=== PATIENT | male | born 1980 | race African-American/Black ===

== ENCOUNTER 2017-06-20 09:11 | Emergency (ER) | payer MEDICAID, OTHER ==
[~2017-06-20] VITALS: Ht 157.5 cm; Wt 86.4 kg
[~2017-06-20 09:11] MED LIST: ALBU17AE27 IH; ARIP10TA8 PO
[2017-06-20 09:19] VITALS: BP 118/56
[2017-06-20] MEDS ORDERED: IBUPROFEN 800 MG TABLET PO ONE (10:15)
== END 2017-06-20 10:53 | disposition home or self-care (01) ==
LOC: EMS 09:15
DX: S93.401A Sprain of unspecified ligament of right ankle, initial encounter (principal); J45.909 Unspecified asthma, uncomplicated; Z87.891 Personal history of nicotine dependence; Z91.010 Allergy to peanuts; Z91.018 Allergy to other foods; X50.9XXA Other and unspecified overexertion or strenuous movements or postures, initial encounter; Y93.39 Activity, other involving climbing, rappelling and jumping off; Y92.69 Other specified industrial and construction area as the place of occurrence of the external cause; Y99.0 Civilian activity done for income or pay
CPT/HCPCS: 99284

== ENCOUNTER 2017-06-25 09:31 | Emergency (ER) | payer OTHER ==
[~2017-06-25] VITALS: Ht 165.1 cm; Wt 86.4 kg
[2017-06-25 09:38] VITALS: BP 132/74
[2017-06-25] MEDS ORDERED: HYDROCODONE/ACETAMINOPHEN 5-325 MG TABLET PO ONE (10:45)
== END 2017-06-25 11:22 | disposition home or self-care (01) ==
LOC: EMS 09:33
DX: S62.304A Unspecified fracture of fourth metacarpal bone, right hand, initial encounter for closed fracture (principal); J45.909 Unspecified asthma, uncomplicated; F17.210 Nicotine dependence, cigarettes, uncomplicated; Z88.6 Allergy status to analgesic agent; Z91.010 Allergy to peanuts; Z91.018 Allergy to other foods; W22.8XXA Striking against or struck by other objects, initial encounter; Y93.89 Activity, other specified; Y92.89 Other specified places as the place of occurrence of the external cause; Y99.8 Other external cause status
CPT/HCPCS: 99284

== ENCOUNTER 2019-05-21 06:20 | Emergency (ER) | payer SELFPAY ==
[~2019-05-21] VITALS: Ht 165.1 cm; Wt 185.0 kg
[~2019-05-21 06:20] MED LIST changes: -ARIP10TA8 PO
[2019-05-21] MEDS ORDERED: IPRATROPIUM BROMIDE 0.5 MG/2.5 ML NEB SOLUTION NEB ONE (06:30)
[2019-05-21] MEDS ORDERED: ALBUTEROL SULFATE 2.5 MG/0.5 ML NEB SOLUTION NEB ONE (06:30)
[2019-05-21] MEDS ORDERED: 0.9% SODIUM CHLORIDE 5 ML NEB SOLUTION NEB ONE (06:35)
[2019-05-21 07:56] VITALS: BP 132/76
[2019-05-21] MEDS ORDERED: PredniSONE 20 MG TABLET PO ONE (08:15)
== END 2019-05-21 08:34 | disposition home or self-care (01) ==
LOC: EMS 06:20
DX: J45.901 Unspecified asthma with (acute) exacerbation (principal); F17.210 Nicotine dependence, cigarettes, uncomplicated; Z88.6 Allergy status to analgesic agent; Z91.010 Allergy to peanuts; Z88.8 Allergy status to other drugs, medicaments and biological substances
CPT/HCPCS: 71046; 94640; 99283; 99406; J7512

== ENCOUNTER 2019-11-06 17:47 | Emergency (ER) | payer SELFPAY ==
[~2019-11-06] VITALS: Ht 165.1 cm; Wt 83.2 kg
[2019-11-06] MEDS ORDERED: ACETAMINOPHEN/CODEINE 300-30 MG TABLET PO ONE (19:00)
[2019-11-06 19:35] VITALS: BP 125/76
== END 2019-11-06 19:59 | disposition home or self-care (01) ==
LOC: EMS 17:47
DX: M26.69 Other specified disorders of temporomandibular joint (principal); J45.909 Unspecified asthma, uncomplicated; F17.210 Nicotine dependence, cigarettes, uncomplicated; Z88.6 Allergy status to analgesic agent; Z88.8 Allergy status to other drugs, medicaments and biological substances; Z91.010 Allergy to peanuts
CPT/HCPCS: 70450

== ENCOUNTER 2022-06-13 22:16 | Emergency (ER) | payer MEDICAID, OTHER ==
[~2022-06-13] VITALS: Ht 152.4 cm; Wt 76.8 kg
[2022-06-13] MEDS ORDERED: TRAM50TA2 PO (23:55)
[2022-06-14 00:09] VITALS: BP 115/67
== END 2022-06-14 00:30 | disposition home or self-care (01) ==
LOC: EMS 22:21
DX: S62.501A Fracture of unspecified phalanx of right thumb, initial encounter for closed fracture (principal); J45.909 Unspecified asthma, uncomplicated; F17.210 Nicotine dependence, cigarettes, uncomplicated; Z87.898 Personal history of other specified conditions; Z98.890 Other specified postprocedural states; Z91.010 Allergy to peanuts; Z88.8 Allergy status to other drugs, medicaments and biological substances; Z91.018 Allergy to other foods; X58.XXXA Exposure to other specified factors, initial encounter; Y93.89 Activity, other specified; Y92.89 Other specified places as the place of occurrence of the external cause; Y99.0 Civilian activity done for income or pay
CPT/HCPCS: 99283

== ENCOUNTER 2022-12-01 22:47 | Emergency (ER) | payer OTHER ==
[~2022-12-01] VITALS: Ht 165.1 cm; Wt 77.3 kg
[~2022-12-01 22:47] MED LIST changes: +TRAM50TA2 PO
[2022-12-01 23:08] VITALS: BP 125/78
[2022-12-02] MEDS ORDERED: TraMADol HCL 50 MG TABLET PO ONE (00:45)
== END 2022-12-02 02:41 | disposition home or self-care (01) ==
LOC: EMS 23:03
DX: M25.512 Pain in left shoulder (principal); R07.89 Other chest pain; M54.50 Low back pain, unspecified; J45.909 Unspecified asthma, uncomplicated; G89.29 Other chronic pain; F17.210 Nicotine dependence, cigarettes, uncomplicated; Z88.6 Allergy status to analgesic agent; Z88.8 Allergy status to other drugs, medicaments and biological substances; Z91.010 Allergy to peanuts; V99.XXXA Unspecified transport accident, initial encounter; Y93.89 Activity, other specified; Y92.89 Other specified places as the place of occurrence of the external cause; Y99.8 Other external cause status
CPT/HCPCS: 71101; 72100; 99284; 73030-TC; Z7502; Z7610

== ENCOUNTER 2023-06-03 20:16 | Emergency (ER) | payer OTHER ==
[~2023-06-03] VITALS: Ht 165.1 cm; Wt 77.3 kg
[2023-06-03] MEDS ORDERED: ACETAMINOPHEN/CODEINE 300-30 MG TABLET PO ONE (21:00)
[2023-06-03] MEDS ORDERED: CLINDAMYCIN HCL 150 MG CAPSULE PO ONE (21:00)
[2023-06-03] MEDS ORDERED: TRAM-559 PO (21:15)
[2023-06-03] MEDS ORDERED: CLIN-142 PO (21:15)
[2023-06-03 22:00] VITALS: BP 124/66; PULSE 67; RESP 16; TEMP 97.3
== END 2023-06-03 22:00 | disposition home or self-care (01) ==
LOC: EMS 20:17
DX: K02.9 Dental caries, unspecified (principal); F17.210 Nicotine dependence, cigarettes, uncomplicated; J45.909 Unspecified asthma, uncomplicated; G89.29 Other chronic pain; M54.9 Dorsalgia, unspecified; Z98.890 Other specified postprocedural states; Z91.010 Allergy to peanuts; Z88.6 Allergy status to analgesic agent; Z88.8 Allergy status to other drugs, medicaments and biological substances
CPT/HCPCS: 99283

== ENCOUNTER 2023-09-08 21:41 | Emergency (ER) | payer OTHER ==
[~2023-09-08] VITALS: Ht 165.1 cm; Wt 72.0 kg
[~2023-09-08 21:41] MED LIST changes: +CLIN-142 PO; +TRAM-559 PO
[2023-09-08 22:31] VITALS: TEMP 98
[2023-09-09] MEDS: ONDANSETRON HCL 4 MG/2 ML VIAL IVP ONE (01:37)
[2023-09-09] MEDS: HYDROmorphone HCL 2 MG/ML SYRINGE IVP ONE (01:37)
[2023-09-09 01:38] LABS: BASOPHILS % (AUTO) 1.1 % (0.0-2.0); EOSINOPHILS % (AUTO) 1.4 % (1.0-6.0); HEMATOCRIT 36.3 % (41-53); HEMOGLOBIN 11.9 g/dL (13.5-17.5); LYMPHOCYTES # (AUTO) 1.5 K/uL (1.0-4.8); LYMPHOCYTES % (AUTO) 12.9 % (22.0-44.0); MEAN CORPUSCULAR HEMOGLOBIN 29.3 pg (26.0-34.0); MEAN CORPUSCULAR HGB CONC 32.7 G/dL (31.0-37.0); MEAN CORPUSCULAR VOLUME 89 fL (80-100); MONOCYTES # (AUTO) 0.8 K/uL (0.1-1.0); MONOCYTES % (AUTO) 6.7 % (2.0-9.0); NEUTROPHILS # (AUTO) 8.8 K/uL (1.8-7.7); NEUTROPHILS % (AUTO) 77.9 % (40.0-70.0); PLATELET COUNT (AUTO) 272 K/uL (150-450); RED BLOOD CELL COUNT(AUTO) 4.06 MIL/uL (4.50-5.90); RED CELL DISTRIBUTION WIDTH 13.3 % (11.5-14.5); WHITE BLOOD COUNT (AUTO) 11.3 K/uL (4.5-11.0)
[2023-09-09] MEDS: PERTUSS(ACELL),DIPH,TET VAC/PF 0.5 ML SYRINGE IM. ONE (01:38)
[2023-09-09 01:47] LABS: ANION GAP 11 mmol/L (8-16); CALCIUM, TOTAL 8.9 mg/dL (8.8-10.5); CARBON DIOXIDE 24 mmol/L (22-29); CHLORIDE 104 mmol/L (98-107); CREATININE 0.81 mg/dL (0.60-1.30); GLOMERULAR FILTR. RATE CALC > 60 mL/min (>60); GLUCOSE,RANDOM 100 mg/dL (70-110); POTASSIUM 3.5 mmol/L (3.5-5.1); SODIUM SERUM 139 mmol/L (136-145); UREA NITROGEN, BLOOD 11 mg/dL (7-18)
[2023-09-09 01:53] LABS: ALANINE AMINOTRANSFERASE 21 U/L (12-78); ALBUMIN 3.5 g/dL (3.4-5.0); ALKALINE PHOSPHATASE 65 U/L (46-116); ASPARTATE AMINOTRANSFERASE 17 U/L (15-37); BILIRUBIN,TOTAL 0.6 mg/dL (0.1-1.0); TOTAL PROTEIN, SERUM 6.6 g/dL (6.4-8.2)
[2023-09-09 01:56] LABS: LACTIC ACID 0.5 mmol/L (0.4-2.0)
[2023-09-09] MEDS: VANCOMYCIN HCL 1.5 GM in DEXTROSE 5%-WATER 250 ML IV ONE (01:56)
[2023-09-09 02:55] LABS: COVID AG,FIA SOURCE NASAL SWAB
[2023-09-09 03:18] LABS: SARS-COV2 (COVID) ANTIGEN,FIA Negative (Negative)
[2023-09-09] MEDS ORDERED: ONDANSETRON HCL 4 MG/2 ML VIAL IVP PRN (04:45)
[2023-09-09] MEDS: DOCUSATE SODIUM 100 MG CAPSULE PO SCH (08:13)
[2023-09-09] MEDS: VANCOMYCIN 1GM/WATER(PEG/NADA) 200 ML IV SCH (08:13)
[2023-09-09] MEDS: HEPARIN SODIUM,PORCINE 5,000 UNITS/ML VIAL SQ SCH (08:13)
[2023-09-09] MEDS: ACETAMINOPHEN 325 MG TABLET PO PRN (08:17)
[2023-09-09] MEDS ORDERED: SODIUM CHLORIDE 0.9% 100 ML ONE (09:05)
[2023-09-09] MEDS ORDERED: IOHEXOL 350 MG/ML 100 ML VIAL ONE (09:05)
[2023-09-09] MEDS: HYDROCODONE/ACETAMINOPHEN 5-325 MG TABLET PO ONE (17:37)
[2023-09-09 19:20] VITALS: BP 136/75; PULSE 74; RESP 16
== END 2023-09-09 20:15 | disposition left against medical advice (07) ==
LOC: EMS 22:02 → AHU 09-09 04:56 → UNDOADMIN 09-09 04:56 → 6N 09-09 18:49 → AHU 09-09 18:49 → EMS 09-09 20:15
DX: M25.562 Pain in left knee (principal); L03.116 Cellulitis of left lower limb; J45.909 Unspecified asthma, uncomplicated; G89.29 Other chronic pain; Z87.891 Personal history of nicotine dependence; Z98.890 Other specified postprocedural states; Z20.822 Contact with and (suspected) exposure to COVID-19
CPT/HCPCS: 99285; 96365; 73701; 93971; 96375; 96367; 87426; 80053; 83605; 85025; 87040; 36415; 90715; 90471; 96372; J1170; J2405; J3370; J1644; Q9967; J7060; J7050

== ENCOUNTER 2024-12-17 17:54 | Emergency (ER) | payer OTHER ==
[~2024-12-17] VITALS: Ht 165.1 cm; Wt 81.0 kg
[~2024-12-17 17:54] MED LIST changes: -ALBU17AE27 IH; -CLIN-142 PO; -TRAM-559 PO; -TRAM50TA2 PO; +TRAM50TA5 PO
[2024-12-17 18:18] VITALS: TEMP 97.2
[2024-12-17 20:36] VITALS: BP 104/76; PULSE 75; RESP 18; O2SAT 97
== END 2024-12-17 20:38 | disposition home or self-care (01) ==
LOC: EMS 17:55
DX: M25.561 Pain in right knee (principal); J45.909 Unspecified asthma, uncomplicated; M19.90 Unspecified osteoarthritis, unspecified site; Z88.6 Allergy status to analgesic agent; Z91.010 Allergy to peanuts; Z87.891 Personal history of nicotine dependence
CPT/HCPCS: 99283